=== PATIENT | female | born 1985 | race African-American/Black ===

== ENCOUNTER 2017-04-16 11:16 | Outpatient (CLI) | payer OTHER | END 2017-04-16 14:57 | disposition home or self-care (01) | LOC: DCC 11:16 | DX: N61.0 Mastitis without abscess (principal); N28.9 Disorder of kidney and ureter, unspecified | CPT/HCPCS: G0463 ==

== ENCOUNTER 2017-04-23 14:50 | Outpatient (CLI) | payer OTHER | END 2017-04-23 16:40 | disposition home or self-care (01) | LOC: DCC 14:50 | DX: N61.0 Mastitis without abscess (principal); N28.9 Disorder of kidney and ureter, unspecified | CPT/HCPCS: G0463 ==